=== PATIENT | female | born 1965 | race American Indian/Alaskan Native ===

== ENCOUNTER 2019-11-23 09:02 | Emergency (ER) | payer OTHER, SELFPAY ==
[2019-11-23 09:16] VITALS: BP 186/116; PULSE 79; RESP 17; TEMP 36.6; O2SAT 98
[2019-11-23 10:00] VITALS: BP 178/108; PULSE 77; RESP 16; O2SAT 98
[2019-11-23] MEDS: KETOROLAC (*BKC) 60 MG/2 ML VIAL IM (10:17)
[2019-11-23 11:09] VITALS: BP 190/115; PULSE 76; RESP 18; O2SAT 99
--- NOTE | 2019-11-23 11:09 | PC.NURSE ---
BEDSIDE REPORT TO EDEN MAR AT THIS TIME, SHE HAS ASSUMED PT CARE.
--- NOTE | 2019-11-23 11:15 | WC.ED.TRAUMA ---
HPI - Trauma General Chief Complaint: Extremity Injury, Upper Stated Complaint: left arm and right leg pain Time Seen by Provider: 11/23/19 10:02 Source: patient Mode of arrival: ambulatory Limitations: no limitations History of Present Illness HPI narrative: Patient is a 54-year-old female who presents with a month's long duration of left-sided neck pain radiating down the arm noting that she gets tingling patient denies injury or trauma or other complaints patient has been taking [id number] medications with minimal improvement patient has not seen her physician for this patient denies similar occurrence in the past Related Data Home Medications Medication Instructions Recorded Confirmed lisinopril 2.5 mg PO DAILY 11/23/19 Allergies Allergy/AdvReac Type Severity Reaction Status Date / Time No Known Allergies Allergy Verified 11/23/19 09:20 Review of Systems Review of Systems: All systems reviewed & are unremarkable except as noted in HPI and below PMFSH Past Medical History Medical History (Updated 11/23/19 @ 11:18 by Cheko Powell PA-C) Hypertension Surgical History Surgical History (Updated 11/23/19 @ 11:16 by Cheko Powell PA-C) H/O section Social History Social History Gender identity (if verbalized by the patient): Female Exam Narrative: Exam Narrative: GENERAL: Well-appearing, well-nourished, and in no acute distress. HEAD: Normocephalic, atraumatic. EYES: PERRLA and EOMI. ENT: Nares clear, no rhinorrhea or epistaxis. Mucous membranes moist. EXTREMITIES: Normal range of motion. No edema. Tenderness to the left paraspinal musculature of the cervical spine no deformities noted SKIN: Warm, dry, no rash. NEURO: No focal deficits. Alert and oriented x3. Motor and sensory intact and symmetrical in the extremities. Neurovascularly intact. Capillary refill less than 2 seconds PSYCH: Normal mood and affect. Course Course Emergency Course: Patient in the room in no distress will be referred to primary care for further evaluation will also have her medications filled. Vital Signs Vital signs: Vital Signs Temperature 97.8 F 11/23/19 09:16 Pulse Rate 79 11/23/19 09:16 Respiratory Rate 17 11/23/19 09:16 Blood Pressure 186/116 H 11/23/19 09:16 Pulse Oximetry 98 11/23/19 09:16 Temperature 97.8 F 11/23/19 09:16 Pulse Rate 76 11/23/19 11:09 Respiratory Rate 18 11/23/19 11:09 Blood Pressure 190/115 H 11/23/19 11:09 Pulse Oximetry 99 11/23/19 11:09 MDM - Trauma MDM Narrative Medical decision making narrative: Patients injury or pain is consistent with musculoskeletal etiology. No signs of neurological or vascular compromise on exam. Compartments and tisues are soft without signs of compartment syndrome. Pain is felt appropriate for further evaluation on an outpatient basis. Discharge Plan Discharge Clinical Impression: Cervical radiculopathy Patient Disposition: Home, Self-Care Condition: Stable Instructions: Antibiotic Form, Cervical Radiculopathy (ED) Additional Instructions: Follow up with your primary care doctor in 5-7 days for re-evaluation. Go to ER for worsening pain, vision changes, nausea/vomiting, fever/chills, weakness, chest pain, shortness of breath, numbness/tingling, slurred speech, difficulty walking, change in mental status etc. or any other concerns. Take any prescribed medications as directed. Prescriptions: New amlodipine 10 mg tablet 10 mg PO DAILY 30 Days Qty: 30 RF: 0 lisinopril 10 mg tablet 10 mg PO DAILY 30 Days Qty: 30 RF: 0 cyclobenzaprine 10 mg tablet 10 mg PO TID PRN (Reason: muscle spasm) Qty: 20 RF: 0 naproxen 500 mg tablet 500 mg PO BID PRN (Reason: pain) Qty: 5 RF: 0 No Action lisinopril 2.5 mg Tablet 2.5 mg PO DAILY RF: 0 Follow-up/Referrals: PHYSICIAN,R DEVELOPER [Primary Care Provider]
[2019-11-23 11:47] VITALS: BP 193/114; PULSE 71; RESP 16; O2SAT 99
== END 2019-11-23 11:48 | disposition home or self-care (01) ==
PROVIDERS: Emergency Provider Emergency Medicine
DX: M54.12 Radiculopathy, cervical region (principal); I10 Essential (primary) hypertension
CPT/HCPCS: 96372; 99283; J1885

== ENCOUNTER 2023-08-14 14:38 | Outpatient (CLI) | payer OTHER, SELFPAY ==
--- NOTE | ~2023-08-14 | MR_ITS ---
MRI of the right knee Clinical history: Medial meniscal tear Technique: Coronal proton density and proton density-weighted images, sagittal proton-density and T2 fat-sat images, and axial proton-density fat-saturated images were acquired. Findings: Anterior and posterior cruciate ligaments are intact. Medial collateral ligament is intact with prominent surrounding soft tissue edema. Lateral collateral ligament complex is intact. Popliteu s tendon is intact. Medial and lateral menisci are intact, without evidence of tear. 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 There is extensive high-grade chondromalacia of the femoral trochlea. There is diffuse moderate chondral thinn ing of the medial femoral condyle. There is mild chondral thinning of the lateral compartment. Small tricompartmental osteophytes are present. Extensor mechanism is intact. Small joint effusion present. No Clinton's cyst. Impression: Grade 1 to minimal grade 2 MCL sprain. No meniscal tear evident. Chondromalacia, particularly of the patellofemoral compartment, as detailed above. Small joint effusion. Reviewed, dictated and finalized at [facility]. Impression: Grade 1 to minimal grade 2 MCL sprain. No meniscal tear evident. Chondromalacia, particularly of the patellofemoral compartment, as detailed abo ve. Small joint effusion.
== END 2023-08-14 14:39 | disposition home or self-care (01) ==
PROVIDERS: PCP Internal Medicine; Visit Provider Orthopaedic Surgery
DX: S83.241A Other tear of medial meniscus, current injury, right knee, initial encounter (principal); X58.XXXA Exposure to other specified factors, initial encounter; M25.461 Effusion, right knee
CPT/HCPCS: 73721

== ENCOUNTER 2023-09-01 08:27 | Outpatient (CLI) | payer OTHER, SELFPAY ==
--- NOTE | 2023-09-03 11:23 | WPDHOMESLEEP ---
Sleep Study - Home Unattended Date of Study: 09/01/23 Ordering Provider: Choco Santamaria, Interpreting Provider: Anusha Jackson MD Home Sleep Study Type: Watch PAT Height: 1.63 m Weight: 87.09 kg Body Mass Index: 32.9 Neck Circumference (inches): 15.5 [place]: 6 Reason for Sleep Study Waking in the night Sleep History Rosalind Gonzalez is a 58-year-old female with asthma, hypertension and shortness of breath. She frequently awakens from sleep feeling short of breath. She never awakens at night with heartburn, belching or coughing. She rarely snores loudly enough that others complain about it. She rarely has difficulty sleeping when she has a cold. She occasionally wakes up gasping for breath at night. She does not have breathing problems at night witnessed by others. She does not sweat excessively at night. She occasionally notices her heart pounding or beating irregularly at night. She rarely falls asleep in the day, never involuntarily or while driving. She does not have loss of muscle tone with strong emotion. She does not have daytime difficulties due to excessive sleepiness. She does not feel paralyzed on waking or falling asleep. She does not have vivid dreamlike scenes upon awakening or falling asleep. She does not feel afraid to go to sleep. She does not have nightmares. She rarely remembers her dreams. She does not have racing thoughts. She does not feel sad or depressed. She rarely has anxiety. She does not notice parts her body jerk. She does not kick at night. She does not have crawling or aching feelings in her legs. She does not experience any kind of leg pain at night. She does not have morning jaw pain or grind her teeth during sleep. She frequently is bothered by pain during the day and wakes up with pain at night. She rarely wakes up feeling stiff in the morning, rarely wakes with sore or achy muscles, rarely wakes up with pain in the neck and spine. Normal bedtime is 9:00 p.m. falling asleep within 10 minutes, typically waking 2-3 times at night to go to the bathroom or have a late snack. She stays awake for 20 minutes before returning to sleep, waking at 6:30 a.m. in the morning. These awakenings occur in the middle of the night. Her schedule is similar on weekends, bedtime is 10:00 p.m. and wake time is 8:00 a.m.. She estimates getting between 6 and 7 hours of sleep at night. She takes naps in the afternoon or evening. A short nap lasting 10-15 minutes may be refreshing. She feels better in the morning compared to other times of day. Habits: Tobacco: never smoker Caffeine: 3 servings per day Alcohol: none Recreational substances: none FOR[facility]LY [facility], [facility] Past Medical History Medical History Asthma Hypertension Surgical History Surgical History H/O section Social History Social History (Reviewed 09/03/23 @ 11: by Anusha Jackson MD) Smoking status: Never smoker Alcohol intake: never Substance use type: does not use Do You Feel Safe in your Home?: Yes Lack of Transportation: YES Lack of Food: Often True Current Housing: I Do Not Have Housing Concerned About Future Housing: YES Difficulty Paying Gas/Electric Bills: YES Difficulty Paying for Meds: YES Currently Unemployed: YES Education: High School Diploma/GED Difficulty w/ Childcare or Family Care: No Living arrangements: with family Occupation/Education: unemployed Gender identity (if verbalized by the patient): Female Medications Home Medications Medication Instructions Recorded Confirmed Type amlodipine 10 mg tablet 10 mg PO DAILY 30 days #30 tabs 11/23/19 08/04/23 Rx lisinopril 10 mg tablet 10 mg PO DAILY 30 days #30 tabs 11/23/19 08/04/23 Rx albuterol sulfate 90 mcg/actuation 1 inh inhalation Q4H 08/04/23 08/04/23 History aerosol inhaler atorvastatin 20 mg ta
[2023-09-03 11:27] VITALS: BMI 32.9
== END 2023-09-02 08:57 | disposition home or self-care (01) ==
LOC: ANHCSM 08:30
PROVIDERS: PCP Internal Medicine; Visit Provider Internal Medicine
DX: G47.33 Obstructive sleep apnea (adult) (pediatric) (principal); Z68.33 Body mass index [BMI] 33.0-33.9, adult; G47.9 Sleep disorder, unspecified
CPT/HCPCS: 95800